=== PATIENT | male | born 1955 | race Caucasian/White ===

== ENCOUNTER → 2022-08-23 | Outpatient (CLI) | payer MEDICARE ==
--- NOTE | 2022-08-23 14:06 | CT ---
EXAMINATION TYPE: CT abdomen pelvis wo con CT DLP: 754 mGycm, Automated exposure control for dose reduction was used. DATE OF EXAM: 08/23/2022 1:37 PM COMPARISON: CT abdomen pelvis most recent from CLINICAL INDICATION:Male, 66 years old with history of R31.1 BENIGN ESSENTIAL MICROSCOP; Microhematur ia TECHNIQUE: Axial CT of the abdomen and pelvis. Sagittal and coronal reformats were created on a [email or web address] workstation. Contrast used: None Oral contrast used: without Oral Contrast FINDINGS: LOWER CHEST: Unremarkable ABDOMEN LIVER: Unremarkable GALLBLADDER AND BILE DUCTS: Unremarkable. PANCREAS: Unremarkable. SPLEEN: Unremarkable. ADRENAL GLANDS: Unremarkable. KIDNEYS AND URETERS: Nonobstructing right renal calculus measuring 7 mm. Right renal cyst. No evidenc e of obstructive uropathy. PELVIS BLADDER: Left lateral bladder diverticulum containing multiple bladder stones, the largest measuring up to 16 mm REPRODUCTIVE: The prostate gland is enlarged measuring up to 4.8 cm. ABDOMEN & PELVIS STOMACH AND BOWEL: No evidence of bowel obstruction. The appendix is dilated and filled with stool me asuring up to 14 mm in thickness. No evidence of inflammation or wall thickening. PERITONEUM: No evidence of pneumoperitoneum or free fluid. VASCULATURE: No evidence of aortic aneurysm. Mild left disc with severe arterial vasculature. MUSCULOSKELETAL: No acute osseous abnormalities, multilevel disc degeneration changes of the spine. M ultilevel facet joint arthropathy is present. LYMPH NODES: No gross evidence for lymphadenopathy. SOFT TISSUE/ABDOMINAL WALL: Post surgical changes anterior abdominal wall. Right fatty inguinal canal changes. IMPRESSION: 1. Large left posterior lateral bladder diverticulum containing multiple bladder stones measuring up to 16 mm. Additional nonobstructing right renal calculus. 2. Prostatomegaly correlate with serum PSA.
== END | disposition home or self-care (01) ==
LOC: RADCTMAIN 13:08
PROVIDERS: ATTEND Urology
DX: N20.0 Calculus of kidney (principal); N32.3 Diverticulum of bladder; N21.0 Calculus in bladder; N40.0 Benign prostatic hyperplasia without lower urinary tract symptoms; R31.1 Benign essential microscopic hematuria
CPT/HCPCS: 74176

== ENCOUNTER → 2022-09-20 | Outpatient (CLI) | payer MEDICARE ==
[2022-09-20 23:57] LABS: African American GFR (CKD) 102.1 (60.0-200.0); Anion Gap 10.2 mmol/L (10.00-18.00); Blood Urea Nitrogen 21.6 mg/dL (9.0-27.0); Carbon Dioxide 25.8 mmol/L (20.0-27.5); Non-African American GFR(CKD) 88.1 (60.0-200.0); Potassium 4.5 mmol/L (3.5-5.5)
[2022-09-20 23:58] LABS: Basophils # (A) 0.04 X 10*3/uL (0.00-0.10); Basophils % (A) 0.5 %; Eosinophils # (A) 0.46 X 10*3/uL (0.04-0.35); Eosinophils % (A) 5.4 %; HCT 46.2 % (39.6-50.0); HGB 14.9 g/dL (13.0-17.0); Immature Grans, Automated 0.2 %; Lymphocytes # (A) 1.31 X 10*3/uL (0.90-5.00); Lymphocytes % (A) 15.3 %; MCH 30.5 pg (27.0-32.0); MCHC 32.3 g/dL (32.0-37.0); MCV 94.7 fL (80.0-97.0); Mean Platelet Volume 11.1 fL (9.5-12.2); Monocytes # (A) 0.79 X 10*3/uL (0.20-1.00); Monocytes % (A) 9.3 %; NRBC Per 100 WBC 0 /100 WBCS (0.0-0.0); Neutrophils # (A) 5.92 X 10*3/uL (1.80-7.70); Neutrophils % (A) 69.3 %; Platelet Count 220 X 10*3/uL (140-440); RBC 4.88 X 10*6/uL (4.40-5.60); RDW 12.5 % (11.5-14.5); WBC 8.54 X 10*3/uL (4.50-10.00)
== END | disposition home or self-care (01) ==
LOC: LABPAT 13:45
PROVIDERS: ATTEND Urology
DX: Z01.812 Encounter for preprocedural laboratory examination (principal); N21.0 Calculus in bladder
CPT/HCPCS: 80048; 85025

== ENCOUNTER → 2022-10-04 | Day surgery (SDC) | payer MEDICARE ==
--- NOTE | 2022-10-03 07:07 | P.GSHP ---
History of Present Illness H&P Date: 10/03/22 Chief Complaint: Painful micturition The patient is a 66-year-old white male who presents with a one-year history of progressive voiding symptoms. Specifically, he reports a weak urinary stream, hesitancy, increased urinary frequency, and painful micturition. He is being tr eated with tamsulosin. A dosage of 0.8 mg works well, whereas 0.4 mg did not work effectively. He has been found to have microhematuria. A computed tomography scan of the abdomen and pelvis shows a left posterior bladder wall diverticulum measuring 3.5 x 5 cm, containing several calculi measuring up to 16 mm in size. This was confirmed on cystoscopy, which also revealed trilobar BPH. He now comes for cystolithotripsy. - Cardiovascular Cardiovascular: Reports high blood pressure - Genitourinary (Male) Genitourinary: Reports as per HPI Past Medical History Past Medical History: COPD, Hypertension, Prostate Disorder Additional Past Medical History / Comment(s): enlarged prostate History of Any Multi-Drug Resistant Organisms: None Reported Past Surgical History: Hernia Repair, Orthopedic Surgery Additional Past Surgical History / Comment(s): osbaldo inguinal, torn meniscus rt knee Past Anesthesia/Blood Transfusion Reactions: Postoperative Nausea & Vomiting (PONV) Smoking Status: Never smoker Medications and Allergies Home Medications Medication Instructions Recorded Confirmed Type Enalapril Maleate 10 mg PO DAILY 10/01/22 10/01/22 History Metoprolol Succinate [Toprol XL] 50 mg PO DAILY 10/01/22 10/01/22 History Tamsulosin [Flomax] 0.4 mg PO BID 10/01/22 10/01/22 History Allergies Allergy/AdvReac Type Severity Reaction Status Date / Time No Known Allergies Allergy Verified 10/01/22 13:41 Surgical - Exam - General well developed, well nourished, no distress - Neck no masses, trachea midline - Respiratory normal respiratory effort - Abdomen Abdomen: soft, non tender, no guarding, no rigid, no rebound - Genitourinary normal penis with no external lesions, testicles non-tender - Rectum Rectum: normal sphincter tone, no masses, other (Prostate moderately enlarged, small left apical nodule) - Psychiatric oriented to time, oriented to person, oriented to place, speech is normal, memory intact Results - Imaging CT scan - abdomen: report reviewed, image reviewed CT scan - pelvis: report reviewed, image reviewed Assessment and Plan (1) Calculus in bladder Status: Acute Code(s): N21.0 - CALCULUS IN BLADDER SNOMED Code(s): 96631573 Plan: Cystoscopy with cystolithotripsy. The procedure has been reviewed in detail with the patient. He has been made aware of potential risks, which include anesthesia, bleeding, infection, bladder perforation, and postoperative urinary retention.
[~2022-10-04] MED LIST: DEXAMETHASONE SOD PHOSPHATE 4 MG/ML 1 ML VIAL IV ONE; HYDROmorphone 0.5 MG/0.5 ML SYRINGE IVP PRN; LACTATED RINGERS 1,000 ML IV ONE; LACTATED RINGERS 1,000 ML IV SCH; LIDOCAINE 1% (10MG/ML) FOR IV START INTRADERMA PRN; LIDOCAINE 2% INJ 20 MG/ML (2 ML VIAL) ONE; MIDAZOLAM 2 MG/2 ML VIAL ONE; ONDANSETRON 4 MG/2 ML VIAL IVP ONE; PROPOFOL 10 MG/ML 20 ML VIAL IV ONE; fentaNYL (PF) 50 MCG/ML 2 ML AMP ONE
--- NOTE | 2022-10-04 09:32 | P.OP ---
Date of Procedure: 10/04/22 Preoperative Diagnosis: Bladder calculi Postoperative Diagnosis: Same Procedure(s) Performed: Cystoscopy with cystolithotripsy Anesthesia: JOHN Surgeon: Harshad Baumann Estimated Blood Loss (ml): 10 IV fluids (ml): 600 Condition: stable Disposition: PACU Indications for Procedure: The patient is a 66-year-old white male who presents with a one-year history of progressive voiding symptoms. Specifically, he reports a weak urinary stream, hesitancy, increased urinary frequency, and painful micturition. He is being treated with tamsulosin. A dosage of 0.8 mg works well, whereas 0.4 mg did not work effectively. He has been found to have microhematuria. A CT scan of the abdomen and pelvis shows a left posterior bladder wall diverticulum measuring 3.5 x 5 cm, containing several calculi measuring up to 16 mm in size. This was confirmed on cystoscopy, which also revealed trilobar BPH. He now comes for cystolithotripsy. Operative Findings: Multiple bladder calculi. The largest measured 1.6 cm size and was located within a left posterior bladder wall diverticulum. Description of Procedure: The patient was taken to the operating room and placed in the dorsal lithotomy position, with legs supported in Shan stirrups. The external genitalia was prepped and draped sterilely. The 30 lens was used to introduce the 21-Welsh King cystoscopic sheath through the urethra and into the bladder under direct vision. The urethra appeared normal. The prostate showed evidence of lateral lobe enlargement along with a small median lobe. The bladder was examined in its entirety. The ureteral orifices appeared normal. Multiple calculi were seen within the bladder, measuring less than 1 cm in size. Some calcifications were adherent to the mucosa on the left posterior bladder wall. A large left posterior bladder wall diverticulum was identified. Within it was a 1.6 cm calculus. Using the 550 micron Holmium laser probe, lithotripsy was performed. Lithotripsy was continued until all calculus fragments could be removed using the [employer] evacuator. In the midst of the procedure, the laser probe became nonfunctional was replaced with a 1000 probe. Once this was completed, the bladder was inspected. There was no active bleeding, and no evidence of bladder perforation. An 18-Welsh Mondragon catheter was placed. The return was essentially clear. The patient tolerated the procedure well was taken to the recovery room in stable condition.
[2022-10-04 09:39] VITALS: TEMP 97
[2022-10-04 11:22] VITALS: BP 142/80; PULSE 83; RESP 16
== END | disposition home or self-care (01) ==
LOC: OR 06:27
PROVIDERS: ATTEND Urology
DX: N21.0 Calculus in bladder (principal); J44.9 Chronic obstructive pulmonary disease, unspecified; I10 Essential (primary) hypertension; N42.9 Disorder of prostate, unspecified; K91.0 Vomiting following gastrointestinal surgery; Z98.890 Other specified postprocedural states; Z79.899 Other long term (current) drug therapy
CPT/HCPCS: 82365; 52318; J2250; J1100; J0690; J2405; J3010; J2704; J1170; J2001